=== PATIENT | female | born 1980 | race Caucasian/White ===

== ENCOUNTER 2020-07-30 12:44 | Emergency (ER) | payer BC, SELFPAY ==
[2020-07-30 12:50] VITALS: BP 140/92; PULSE 68; RESP 18; TEMP 36.5; O2SAT 100
--- NOTE | 2020-07-30 13:03 | PC.NURSE ---
Spoke with Dr Dumont about patient, orders given
--- NOTE | 2020-07-30 13:18 | PC.NURSE ---
Patient c/o being dizzy during blood draw. Cold rag given. Patient's hands visibly shaking. Reports that this has been happening intermittently today.
--- NOTE | 2020-07-30 13:31 | ED.ANXIETY ---
HPI - Anxiety General Chief Complaint: Allergic Reaction Stated Complaint: Possible allgeric reaction to meds Time Seen by Provider: 07/30/20 13:19 History of Present Illness HPI narrative: 39 yo female with h/o recent thyroidectomy presents t the ED for extremity numbness. SHe awoke from sleep this morning with bilateral hand numbness. She does have some sensation, but feels like they are asleep. She also says that she just does not feel right. She does nt know if she is having any muscle spasm. Related Data Home Medications Medication Instructions Recorded Confirmed calcitriol 07/30/20 cefdinir mg 07/30/20 hydrocodone-acetaminophen 07/30/20 levothyroxine [Euthyrox] 07/30/20 Allergies Allergy/AdvReac Type Severity Reaction Status Date / Time No Known Allergies Allergy Mild Verified 07/30/20 12:52 Review of Systems Review of Systems: All systems reviewed & are unremarkable except as noted in HPI and below Constitutional: Constitutional: Denies fever(s) and Reports weakness Cardiovascular: Cardiovascular: Denies chest pain Gastrointestinal: Gastrointestinal: Denies abdominal pain Neurologic: Reports numbness and Reports weakness PMFSH Family History Family History (Updated 05/22/18 @ 11:16 by DOCTOR UNKNOWN) Other Hypertension Social History Social History Smoking status: Light tobacco smoker Alcohol intake: current Exam Const: General: healthy appearing and alert Nutritional Appearance: well nourished Orientation/consciousness: patient oriented x3 Other: mild distress HENMT: Head: normal to inspection Neck: Other: Small surgical wound to anterior neck Resp: Effort & Inspection: normal respiratory effort Auscultation: clear to auscultation bilaterally Cardio: Rate: regular rate Rhythm: regular rhythm Skin: General skin exam: normal color Neuro: General: patient oriented x3 and moves all extremities Speech: normal speech Other: carpal spasms Extrem: General: no edema Psych: Affect: Anxious affect present Course Vital Signs Vital signs: Vital Signs Temperature 36.5 C 07/30/20 12:50 Pulse Rate 68 07/30/20 12:50 Respiratory Rate 18 07/30/20 12:50 Blood Pressure 140/92 H 07/30/20 12:50 Pulse Oximetry 100 07/30/20 12:50 Temperature 36.5 C 07/30/20 12:50 Pulse Rate 64 07/30/20 16:03 Respiratory Rate 18 07/30/20 16:03 Blood Pressure 106/83 07/30/20 16:03 Pulse Oximetry 100 07/30/20 16:03 MDM - Anxiety MDM Narrative Medical decision making narrative: Likely hypocalcemia related to her surgery. Case discussed with Dr. Hawkins. He suggests doubling her calcium supplement. Differential Diagnosis Differential diagnosis: Likely hyperventilation, acute anxiety and other (hypocalcemia) Medical Records Attestation: I reviewed the patient's medical records. Lab Data Attestation: I reviewed the patient's lab results. Result diagrams: 07/30/20 13:14 07/30/20 13:14 Labs: Lab Results 07/30/20 07/30/20 Range/Units 13:14 13:14 WBC 9.2 (4.5-10.0) K/mm3 RBC 4.82 (4.2-5.4) M/mm3 Hgb 14.3 (12.0-15.0) g/dL Hct 42.6 (37.0-47.0) % MCV 88.4 (80-100) fl MCH 29.7 (26-34) pg MCHC 33.6 (32-36) g/dl RDW 13.3 (11.5-14.5) % Plt Count 354 (150-375) k/mm3 MPV 9.6 (7.4-10.4) fl Immature Gran % (Auto) 0.3 (0-0.5) % Neut % (Auto) 47.8 (45.5-73.1) % Lymph % (Auto) 38.9 (18.3-44.2) % [place] % (Auto) 8.7 H (2.6-8.5) % Eos % (Auto) 4.0 (0-4.4) % Baso % (Auto) 0.3 (0.2-1.2) % Lymph # (Auto) 3.57 H (0.9-3.2) K/mm3 [place] # (Auto) 0.8 H (0.1-0.6) K/mm3 Eos # (Auto) 0.4 H (0-0.3) K/mm3 Baso # (Auto) 0.0 (0.0-0.1) K/mm3 Abs Immat Gran (auto) 0.03 (0.00-0.031) K/mm3 Absolute Neuts (auto) 4.4 (1.3-6.7) K/mm3 Absolute Nucleated RBC 0.0 (0.0-0.012) K/mm3 Nucleated RBC % 0.2 (0.0-0.2) % Sodium 140 (137-145) mmol/L Potassium 3.6
[2020-07-30 13:35] LABS: Basophils Percent Auto 0.3 % (0.2-1.2); Eosinophils Absolute Auto 0.4 K/mm3 (0-0.3); Hematocrit 42.6 % (37.0-47.0); Hemoglobin 14.3 g/dL (12.0-15.0); Immature Granulocyte Absolute 0.03 K/mm3 (0.00-0.031); Immature Granulocyte Percent A 0.3 % (0-0.5); Lymphocytes Absolute Auto 3.57 K/mm3 (0.9-3.2); Lymphocytes Percent Auto 38.9 % (18.3-44.2); Mean Corpuscular HGB Conc 33.6 g/dl (32-36); Mean Corpuscular Hemoglobin 29.7 pg (26-34); Mean Corpuscular Volume 88.4 fl (80-100); Mean Platelet Volume 9.6 fl (7.4-10.4); Monocytes Absolute Auto 0.8 K/mm3 (0.1-0.6); Monocytes Percent Auto 8.7 % (2.6-8.5); Neutrophils Absolute Auto 4.4 K/mm3 (1.3-6.7); Neutrophils Percent Auto 47.8 % (45.5-73.1); Nucleated Red Blood Cells Perc 0.2 % (0.0-0.2); Platelet Count Result 354 k/mm3 (150-375); Red Blood Count 4.82 M/mm3 (4.2-5.4); Red Cell Distribution Width 13.3 % (11.5-14.5); White Blood Count 9.2 K/mm3 (4.5-10.0)
[2020-07-30 13:41] LABS: Alanine Aminotransferase 25 U/L (4-35); Alkaline Phosphatase 54 U/L (38-126); Anion Gap 10 mmol/L (8-16); Aspartate Amino Transferase 28 U/L (14-36); Bilirubin,Total 0.2 mg/dL (0.2-1.3); Blood Urea Nitrogen 13 mg/dL (7-17); Carbon Dioxide 25 mmol/L (22-30); Chloride 105 mmol/L (98-107); Estimated CRCL calculation 105 ml/min; Estimated Glomerular Filt Rate > 60; Glucose 83 mg/dL (65-105); Potassium 3.6 mmol/L (3.4-5.0); Sodium 140 mmol/L (137-145)
[2020-07-30] MEDS: CALCIUM GLUCONATE 1,000 MG/10 ML VIAL 1000 MG IV PUSH (13:54)
[2020-07-30] MEDS: SODIUM CHLORIDE 0.9% IV 1,000 ML 999 ML IV CONT (13:54)
[2020-07-30] MEDS: LORazepam INJ (*CRX) 2 MG/ML VIAL 1 MG IV PUSH (13:54)
[2020-07-30 16:03] VITALS: BP 106/83; PULSE 64; RESP 18; O2SAT 100
== END 2020-07-30 16:04 | disposition home or self-care (01) ==
PROVIDERS: Emergency Medicine; Emergency Provider Emergency Medicine; PCP Physician Assistant
DX: E83.51 Hypocalcemia (principal); E89.0 Postprocedural hypothyroidism; F17.200 Nicotine dependence, unspecified, uncomplicated; Z98.890 Other specified postprocedural states
CPT/HCPCS: 36415; 80053; 85025; 96361; 96374; 96375; 99284; J0610; J2060; J7030

== ENCOUNTER 2022-08-28 00:20 | Day surgery (SDC) | payer BC, SELFPAY ==
[2022-08-14 14:37] VITALS: BMI 36.7
--- NOTE | 2022-08-14 14:38 | PC.NURSE ---
Report to the Outpatient Waiting Room, entrance under the green pavilion located off [facility], at time _0630_ on date _07/29/22_. Planned Procedure Time: _0830_. Time changes happen often and if your time is changed the preop area will call you the afternoon before. - You and your visitor will be asked to self-screen and do not enter if you have any COVID symptoms. - Only one visitor is requested with a max of two and NO children visitors are allowed at this time. - The patient visitor may be requested to leave or wait in car when not with patient due to distancing restrictions. - A mask is optional within the hospital. Patients may have clear liquids (water, carbonated beverages, clear teas, apple juice) until 3 hours prior to surgery with a maximum of 20 ounces. - No food from midnight until time of surgery - Infants may have breast milk until 4 hours before surgery, formula 6 hours prior to surgery. - Children will be allowed to drink immediately following surgery. If applicable, please bring a bottle or sippy cup to assist with drinking. Juice, water, soda, and popsicles are readily available. For infants on formula, please bring formula the day of surgery. Pacifiers are allowed. Take the following medications with a SIP of water the morning of surgery: __Levothyroxine___ Medications to discontinue per physician _supplement 3 days prior Date to take last dose Please no make-up, nail yemeni, hairspray, perfume, deodorant, or body powder the day of surgery. No jewelry (including any body piercings) or valuables the day of surgery, leave them at home. Please take a shower or bath the night before, or the morning of, surgery with an antibacterial soap. Wear comfortable, loose fitting clothing. Children are encouraged to wear pajamas. - Jewelry must be removed prior to entering the operating room. Rings and piercings that are not removed may be cut off. - The hospital will not accept responsibility for valuables. - Please leave all valuables, including medications, at home the day of surgery. If you are going home after surgery, a licensed services delivery driver must drive you home. - NO public transportation without another adult if you receive anesthesia. - We recommend that an adult stay with you for 24 hours following discharge. - We also recommend that you do not drive, make important decision, drink alcoholic beverages, or take any drugs that were not prescribed by your health care provider for at least 24 hours after your discharge time. For Pediatric surgeries, we recommend two adults accompany the child home. Follow any additional instructions given to you from your surgeon. If you or anyone in your household have experienced Covid symptoms in the past week, please notify your surgeon or the nurse liaison at the phone number below for possible testing. Telephone instructions given to _Patient__and asked if any additional questions and then verbalized understanding. Patient advised to call surgeon office or pre surgery nurse liaison [phone] if any additional questions.
[2022-08-28] VITALS (9 sets, daily range): BP systolic 102–124; BP diastolic 55–73; PULSE 62–86; RESP 12–18; TEMP 36.4–36.6; O2SAT 96–100
--- NOTE | 2022-08-28 07:27 | PM.IMHP ---
H&P: HPI History of Present Illness Date/Time: 08/28/22 07:27 Chief Complaint: 41-year-old female with severe menorrhagia and unwanted fertility. She also has pelvic pain we have agreed to perform laparoscopic bilateral salpingectomy and endometrial ablation. She understands the risk. She understands that injuries may occur that resulted in hospitalization, more surgery, and severe illness. She understands there is risk of hemorrhage and infection. Review of Systems Review of Systems: All systems reviewed & are unremarkable except as noted in HPI and below Constitutional: Constitutional: Denies chills, Denies fatigue, Denies fever(s) and Denies weakness Eyes: Eyes: Denies blurry vision, Denies change in vision, Denies loss of peripheral vision, Denies loss of vision, Denies other visual disturbances and Denies eye pain ENT: Denies vertigo, Denies dizziness, Denies hearing loss, Denies mouth pain, Denies nasal obstruction, Denies neck mass and Denies neck pain Cardiovascular: Cardiovascular: Denies chest pain, Denies diaphoresis, Denies syncope, Denies leg edema and Denies dyspnea Respiratory: Respiratory: Denies chest congestion, Denies cough, Denies hemoptysis, Denies dyspnea and Denies wheezing Gastrointestinal: Gastrointestinal: Denies abdominal pain, Denies constipation, Denies diarrhea, Denies nausea and Denies vomiting Genitourinary: Genitourinary: Denies hematuria, Denies change in libido, Denies nocturia, Denies genital lesions, Denies flank pain and Denies urinary urgency Musculoskeletal: Musculoskeletal: Denies abnormal gait, Denies back pain, Denies myalgias, Denies arthralgias, Denies joint swelling, Denies muscle weakness and Denies neck pain Integumentary/Breasts: Skin/Breast: Denies swelling, Denies breast pain, Denies breast mass, Denies dry skin, Denies nipple discharge, Denies unusual bruising and Denies jaundice Neurologic: Denies Neuro-related abnormal movements, Denies Abnormal speech present, Denies abnormal gait, Denies behavioral changes, Denies confusion, Denies vertigo, Denies dizziness, Denies syncope, Denies loss of vision, Denies memory loss, Denies convulsions and Denies weakness Psychiatric: Psychiatric: Denies abnormal sleep pattern, Denies behavioral changes, Denies change in libido, Denies confusion, Denies depression, Denies anhedonia and Denies memory loss Endocrine: Endocrine: Reports no additional endocrine complaints, Denies change in libido and Denies fatigue Hematologic/Lymphatic: Hematologic/Lymphatic: Reports no additional hematologic/lymphatic complaints Allergic/Immunologic: Allergic/Immunologic: Reports no additional allergic/immunologic complaints and Denies wheezing [facility] Family History Family History (Updated 05/22/18 @ 11:16 by DOCTOR UNKNOWN) Other Hypertension Social History Social History Years smoked: 18 Smoking status: Light tobacco smoker Tobacco type: cigarettes Alcohol intake: current Drinks per week: 4 Substance use: never Substance use type: does not use Living arrangements: with family Spiritual care concerns: No Meds Home Medications and Allergies Home Medications Medication Instructions Recorded Confirmed Type ergocalciferol (vitamin D2) 1,250 50,000 unit PO WEEKLY 08/14/22 08/28/22 History mcg (50,000 unit) capsule escitalopram oxalate 10 mg tablet 10 mg PO DAILY 08/14/22 08/28/22 History levothyroxine 200 mcg tablet 200 mcg PO DAILY 08/14/22 08/28/22 History (Unithroid) Allergies Allergy/AdvReac Type Severity Reaction Status Date / Time No Known Allergies Allergy Mild Verified 08/28/22 06:25 Vital Signs Vital Signs - 24 hr 08/28/22 06:38 Temperature 97.5 F L Pulse Rate 79 Respiratory Rate 18 Blood Pressure 114/72 Pulse Oximetry 99 Oxygen Delivery Room Air Exam Const: General: cooperative, healthy appearing, comfortable and no acute distress; No confusion Orientation/consciousness: chiquita
--- NOTE | 2022-08-28 07:31 | WPDHPUPDATE1 ---
History and Physical Update Update Date/Time: 08/28/22 07:31 History and Physical has been reviewed, including an updated exam of the patient. There are NO changes in the patient's condition. Risks, benefits, and alternatives have been discussed and questions answered. Patient agrees to proceed with procedure.
--- NOTE | 2022-08-28 07:46 | P.PNAN_ITS ---
Anes - Initial Pre Proc Eval Procedure: Operation Date: 08/28/22 08:30 Proposed Procedures p Laparoscopic Bilateral Salpingectomy, Hysteroscopy with Hanna Endometrial Ablation - Andrez Jones MD Date/Time: 08/28/22 07:46 Surgeon: Andrez Jones MD Pre Op Diagnosis: desires sterilization, Menorrhagia Patient Data Age: 41 Gender: F Height: 1.7 m Weight: 109 kg Last Vital Signs Temp 36.4 C L 08/28/22 06:38 Pulse 79 08/28/22 06:38 Resp 18 08/28/22 06:38 BP 114/72 08/28/22 06:38 Pulse Ox 99 08/28/22 06:38 O2 Del Method Room Air 08/28/22 06:38 Allergies Allergy/AdvReac Type Severity Reaction Status Date / Time No Known Allergies Allergy Mild Verified 08/28/22 06:25 Home Medications Medication Instructions Recorded Confirmed Type ergocalciferol (vitamin D2) 1,250 50,000 unit PO WEEKLY 08/14/22 08/28/22 History mcg (50,000 unit) capsule escitalopram oxalate 10 mg tablet 10 mg PO DAILY 08/14/22 08/28/22 History levothyroxine 200 mcg tablet 200 mcg PO DAILY 08/14/22 08/28/22 History (Unithroid) Patient hx anesthesia problems: none Family hx anesthesia problems: none Results Review: All pre-operative results and documents have been reviewed as part of the pre- operative evaluation. [facility] Past Medical History Medical History Depression Hypothyroid Family History Family History Other Hypertension Social History Social History Years smoked: 18 Smoking status: Light tobacco smoker Tobacco type: cigarettes Alcohol intake: current Drinks per week: 4 Substance use: never Substance use type: does not use Living arrangements: with family Spiritual care concerns: No Anes - Eval Final PreProcedure Day of Procedure 08/28/22 07:46 Patient weight: obese Heart: regular rate and rhythm Lungs: clear to auscultation Airway: Mallampati scale class II Neurological: alert and oriented Last oral intake: >/= 8 hours ASA classification: II Emergent: no Anesthetic plan: proceed Anesthesia type and monitoring: general ETT and standard monitoring Results Review: All pre-operative results and documents have been reviewed as part of the pre- operative evaluation. Informed Consent: The patient's anesthetic plan and its attendant risks and benefits were discussed with the patient/family/POA. Questions were solicited and answers provided to the satisfaction of the patient/family/POA.
[2022-08-28] MEDS: LACTATED RINGERS 1,000 ML 30 ML IV CONT ×2 (08:11→09:44)
[2022-08-28] MEDS: ACETAMINOPHEN 500 MG TABLET 1000 MG PO (08:11)
[2022-08-28] MEDS: KETOROLAC 15 MG/ML VIAL (*BKC) IV PUSH (08:11)
[2022-08-28] MEDS: SCOPOLAMINE 1.5 MG PATCH TRANSDERM (08:11)
--- NOTE | 2022-08-28 09:32 | SUR.OPER ---
IUD INTACT FULLY PER SURGEON NOT TO SEND TO PATHOLOGY
--- NOTE | 2022-08-28 09:58 | P.OP_ITS ---
Procedure Note - Detailed Date of Procedure 08/28/22 Pre-op Diagnosis desires sterilization, Menorrhagia Post-op Diagnosis Same Procedure Performed Laparoscopic bilateral salpingectomy with endometrial ablation and hysteroscopy. IUD removal Surgeon Andrez Jones MD Anesthesia General Indications Menorrhagia, female sterilization Findings Normal-appearing over vulva vagina and cervix. Thin endometrial surface and normalendometrial cavity with IUD placed. , Endometriosis in the posterior cul-de-sac diffuse, throughout the posterior cul-de-sac, patient would need robot for resection of endometriosis. Description of Procedure Patient was taken the operating room. She has prepped draped in the dorsal lithotomy position after induction of general anesthesia. A 5 mm abdominal incision was made in left upper quadrant of the abdomen with scalpel. A 5 mm trocars inserted the intra-abdominal cavity under direct visualization of the scope. Pneumoperitoneum was achieved. A 5 mm periumbilical incision was made using a scalpel on the abdominal scan. A 5 mm trocar was inserted the intra- abdominal cavity under visualization of the scope. A 5 mm incision made left lower quadrant of the abdomen. A 5 mm trocar was inserted the intra-abdominal cavity and direct visualization of the scope. The bilateral fallopian tubes were removed. The paratubal tissue in the area of the uterus was grasped with the LigaSure cautery and transected after being cauterized. The paratubal tissue from the ovary to the uterine cornu was cauterized and transected with LigaSure cautery. This was all done in a bilateral fashion. The tube was transected at the area of the uterine cornua and the tubes was removed through the 5 mm trocar site. The pneumoperitoneum was reduced. The trocars were removed. The skin was closed with subcuticular 4 Monocryl and covered with Dermabond. Our attention was then turned to the endometrial ablation portion of the procedure. A speculum was placed in the vagina. The cervix was grasped with a tenaculum. IUD was removed with a hemostat. The cervix was dilated to approximately 8 mm with Miller dilators. The hysteroscope was inserted. And the below findings were noted. Measurements of the cervix were taken using the uterine sound and the hysteroscope. The intrauterine cavity measurements were entered into the handpiece. The device was inserted into the intrauterine cavity and the array was expanded. The balloon cuff was inflated. When an adequate seal was formed the safety and energy cycles were initiated and completed. The array was collapsed, the balloon was deflated. The insert was withdrawn. The hysteroscope was reinserted and a well desiccated intrauterine cavity was observed. The patient was taken recovery room stable condition. Sponge lap and needle counts were correct x2. She tolerated the procedure well. Estimated Blood Loss 20 Pathology Yes Complications No immediate complications Condition Stable Disposition PACU
[2022-08-28] MEDS: fentaNYL CITRATE INJ (*CRX) 100 MCG/2 ML VIAL 25 MCG IV PUSH ×4 (10:54→11:11)
[2022-08-28] MEDS: oxyCODONE HCL (*CRX) 5 MG TAB IR PO (11:11)
[2022-08-28] MEDS: ONDANSETRON INJ 4 MG/2 ML VIAL IV PUSH (11:15)
== END 2022-08-28 12:06 | disposition home or self-care (01) ==
PROVIDERS: PCP Physician Assistant; Visit Provider Obstetrics & Gynecology
PROC: 0UDB8ZZ Extraction of Endometrium, Via Natural or Artificial Opening Endoscopic (ICD-10-PCS; CPT 58558; principal; 2022-08-28 08:30)
DX: Z30.2 Encounter for sterilization (principal); N92.0 Excessive and frequent menstruation with regular cycle; E03.9 Hypothyroidism, unspecified; F32.A Depression, unspecified; F17.210 Nicotine dependence, cigarettes, uncomplicated; E66.9 Obesity, unspecified; Z68.37 Body mass index [BMI] 37.0-37.9, adult
CPT/HCPCS: 58563; 58661; 88302; A9270; J0330; J1100; J1885; J2250; J2405; J2704; J2710; J3010; J7030; J7120

== ENCOUNTER 2023-03-12 16:02 | Outpatient (CLI) | payer BC, SELFPAY | END 2023-03-12 16:03 | disposition home or self-care (01) | LOC: ANHLAB 16:04 | PROVIDERS: PCP Physician Assistant; Visit Provider Obstetrics & Gynecology | DX: Z01.818 Encounter for other preprocedural examination (principal); N92.0 Excessive and frequent menstruation with regular cycle | CPT/HCPCS: 36415; 86850; 86900; 86901 ==

== ENCOUNTER 2023-04-02 08:58 | Outpatient (CLI) | payer BC, SELFPAY ==
[2023-04-02 09:35] LABS: Anion Gap 8 mmol/L (8-16); Blood Urea Nitrogen 11 mg/dL (7-17); Calcium 7.7 mg/dL (8.4-10.2); Carbon Dioxide 26 mmol/L (22-30); Chloride 102 mmol/L (98-107); Estimated Glomerular Filt Rate > 60; Glucose 119 mg/dL (65-110); Potassium 4.1 mmol/L (3.4-5.0); Sodium 136 mmol/L (137-145)
== END 2023-04-02 08:59 | disposition home or self-care (01) ==
LOC: ANHSURGERY 09:04
PROVIDERS: Anesthesiology; PCP Physician Assistant; Visit Provider Obstetrics & Gynecology
DX: Z01.812 Encounter for preprocedural laboratory examination (principal); N92.0 Excessive and frequent menstruation with regular cycle; R73.03 Prediabetes
CPT/HCPCS: 36415; 80048; 86850; 86900; 86901

== ENCOUNTER 2023-04-09 17:55 | Observation (INO) | payer BC, SELFPAY ==
[2023-03-11 10:04] VITALS: BMI 37.9
--- NOTE | 2023-03-11 10:12 | PC.NURSE ---
Report to the Outpatient Waiting Room, entrance under the green pavilion located off [facility], at time 6:00 on date 03/19/23. Planned Procedure Time: 7:30. Time changes happen often and if your time is changed the preop area will call you the afternoon before. - You and your visitor will be asked to self-screen and do not enter if you have any COVID symptoms. - A mask is optional within the hospital at this time. Patients may have clear liquids (water, carbonated beverages, clear teas, apple juice) until 3 hours prior to surgery (4:30) with a maximum of 20 ounces. - No food from midnight until time of surgery Take the following medications with a SIP of water the morning of surgery: LEVOTHYROXINE DO NOT STOP ANY OF YOUR OTHER PRESCRIPTION MEDICATIONS PRIOR TO SURGERY ?EXCEPT THE FOLLOWING Medications to discontinue per physician: VITAMINS/SUPPLEMENTS Date to take last dose: 03/15/23 Please no make-up, nail south african, hairspray, perfume, deodorant, or body powder the day of surgery. No jewelry (including any body piercings) or valuables the day of surgery, leave them at home. Please take a shower or bath the night before, or the morning of, surgery with an antibacterial soap. Wear comfortable, loose fitting clothing. - Jewelry must be removed prior to entering the operating room. Rings and piercings that are not removed may be cut off. - The hospital will not accept responsibility for valuables. - Please leave all valuables, including medications, at home the day of surgery. If you are going home after surgery, a licensed emergency medical technician/driver must drive you home. - NO public transportation without another adult if you receive anesthesia. - We recommend that an adult stay with you for 24 hours following discharge. - We also recommend that you do not drive, make important decision, drink alcoholic beverages, or take any drugs that were not prescribed by your health care provider for at least 24 hours after your discharge time. Follow any additional instructions given to you from your surgeon. If you or anyone in your household have experienced Covid symptoms in the past week, please notify your surgeon or the nurse liaison at the phone number below for possible testing. Telephone instructions given to PT - KRIS GARCIA and asked if any additional questions and then verbalized understanding. Patient advised to call surgeon office or pre surgery nurse liaison [phone] if any additional questions.
--- NOTE | 2023-03-17 13:41 | P.PNAN_ITS ---
Anes - Initial Pre Proc Eval Procedure: Operation Date: 03/19/23 07:30 Proposed Procedures p Robotic Assisted Hysterectomy with Bilateral Salpingectomy - Andrez Jones MD Date/Time: 03/17/23 13:41 Surgeon: Andrez Jones MD Pre Op Diagnosis: menorrhagia Patient Data Age: 42 Gender: F Height: 1.7 m Weight: 109.8 kg Allergies Allergy/AdvReac Type Severity Reaction Status Date / Time No Known Allergies Allergy Mild Verified 03/11/23 10:02 Home Medications Medication Instructions Recorded Confirmed Type ergocalciferol (vitamin D2) 1,250 50,000 unit PO WEEKLY 08/14/22 03/11/23 History mcg (50,000 unit) capsule escitalopram oxalate 10 mg tablet 10 mg PO DAILY 08/14/22 03/11/23 History levothyroxine 200 mcg tablet 200 mcg PO DAILY 08/14/22 03/11/23 History (Unithroid) calcium carbonate 600 mg calcium 1,200 mg PO DAILY 03/11/23 03/11/23 History (1,500 mg) tablet (Calcium) Results Review: All pre-operative results and documents have been reviewed as part of the pre- operative evaluation. [facility] Past Medical History Medical History (Updated 03/17/23 @ 13:43 by Jose Cain MD) Depression Hypothyroid Obesity Smoker Thyroid cancer Family History Family History Other Hypertension Social History Social History Years smoked: 19 Smoking status: Current every day smoker Tobacco type: cigarettes Alcohol intake: current Drinks per week: 5 Substance use: current Substance use type: marijuana Other substance usage details: RARE Living arrangements: with family Additional living arrangements comments: SISTER Gender identity (if verbalized by the patient): Female Sexual Orientation (if Verbalized by the Patient): Straight or Heterosexual Spiritual care concerns: No Anes - Eval Final PreProcedure Day of Procedure 03/17/23 13:41 Patient weight: obese Heart: regular rate and rhythm Lungs: clear to auscultation Airway: Mallampati scale class II Neurological: alert and oriented Last oral intake: >/= 8 hours ASA classification: III Emergent: no Anesthetic plan: proceed Anesthesia type and monitoring: general ETT and standard monitoring Results Review: All pre-operative results and documents have been reviewed as part of the pre- operative evaluation. Informed Consent: The patient's anesthetic plan and its attendant risks and benefits were discussed with the patient/family/POA. Questions were solicited and answers provided to the satisfaction of the patient/family/POA.
--- NOTE | 2023-03-28 14:41 | PC.NURSE ---
Medications and medical history updated. Pt states no other changes in history since initial interview. New pre-op instructions reviewed with pt. Pt denies further questions at this time.
--- NOTE | 2023-03-28 14:42 | PC.NURSE ---
Report to the Outpatient Waiting Room, entrance under the green pavilion located off [facility], at time 6:30 on date 04/08/23. Planned Procedure Time: 8:30. Time changes happen often and if your time is changed the preop area will call you the afternoon before. - You and your visitor will be asked to self-screen and do not enter if you have any COVID symptoms. - A mask is optional within the hospital at this time. Patients may have clear liquids (water, carbonated beverages, clear teas, apple juice) until 3 hours prior to surgery with a maximum of 20 ounces. - No food from midnight until time of surgery Take the following medications with a SIP of water the morning of surgery: LEVOTHYROXINE DO NOT STOP ANY OF YOUR OTHER PRESCRIPTION MEDICATIONS PRIOR TO SURGERY ?EXCEPT THE FOLLOWING Medications to discontinue per physician: VITAMINS/SUPPLEMENTS Date to take last dose: 04/04/23 Please no make-up, nail pashto, hairspray, perfume, deodorant, or body powder the day of surgery. No jewelry (including any body piercings) or valuables the day of surgery, leave them at home. Please take a shower or bath the night before, or the morning of, surgery with an antibacterial soap. Wear comfortable, loose fitting clothing. - Jewelry must be removed prior to entering the operating room. Rings and piercings that are not removed may be cut off. - The hospital will not accept responsibility for valuables. - Please leave all valuables, including medications, at home the day of surgery. If you are going home after surgery, a licensed distribution driver must drive you home. - NO public transportation without another adult if you receive anesthesia. - We recommend that an adult stay with you for 24 hours following discharge. - We also recommend that you do not drive, make important decision, drink alcoholic beverages, or take any drugs that were not prescribed by your health care provider for at least 24 hours after your discharge time. Follow any additional instructions given to you from your surgeon. If you or anyone in your household have experienced Covid symptoms in the past week, please notify your surgeon or the nurse liaison at the phone number below for possible testing. Telephone instructions given to PT - KRIS GARCIA and asked if any additional questions and then verbalized understanding. Patient advised to call surgeon office or pre surgery nurse liaison [phone] if any additional questions.
[2023-04-08] VITALS (10 sets, daily range): BP systolic 117–133; BP diastolic 70–90; PULSE 61–79; RESP 10–24; TEMP 36.4–36.8; O2SAT 94–100
--- NOTE | 2023-04-08 05:47 | ECG_ITS ---
Measurements Intervals [place] Rate: 67 P: 60 LA: 148 QRS: 25 QRSD: 76 T: 38 QT: 430 QTc: 456 Interpretive Statements SINUS RHYTHM LOW QRS VOLTAGE IN PRECORDIAL LEADS BASELINE ARTIFACT- AVF BORDERLINE ECG NO PREVIOUS ECG AVAILABLE FOR COMPARISON Electronically Signed On 04-08-2023 7:50:15 CDT by Charlie Gonzalez D.O.
[2023-04-08] MEDS: ACETAMINOPHEN 500 MG TABLET 1000 MG PO (06:05)
[2023-04-08] MEDS: LACTATED RINGERS 1,000 ML 30 ML IV CONT ×2 (06:39→09:20)
[2023-04-08] MEDS: KETOROLAC 15 MG/ML VIAL (*BKC) IV PUSH (06:40)
--- NOTE | 2023-04-08 06:46 | P.PNAN_ITS ---
Anes - Initial Pre Proc Eval Procedure: Operation Date: 04/08/23 07:30 Proposed Procedures p Total Laparoscopic Hysterectomy with Bilateral Salpingectomy - Andrez Jones MD Date/Time: 04/08/23 06:46 Surgeon: Andrez Jones MD Pre Op Diagnosis: menorrhagia Patient Data Age: 42 Gender: F Height: 1.7 m Weight: 108.4 kg Last Vital Signs Temp 36.4 C 04/08/23 06:14 Pulse 76 04/08/23 06:14 Resp 16 04/08/23 06:14 BP 127/80 04/08/23 06:14 Pulse Ox 97 04/08/23 06:14 O2 Del Method Room Air 04/08/23 06:14 Allergies Allergy/AdvReac Type Severity Reaction Status Date / Time No Known Allergies Allergy Mild Verified 04/08/23 06:02 Home Medications Medication Instructions Recorded Confirmed Type ergocalciferol (vitamin D2) 1,250 50,000 unit PO WEEKLY 08/14/22 04/08/23 History mcg (50,000 unit) capsule escitalopram oxalate 10 mg tablet 10 mg PO DAILY 08/14/22 04/08/23 History levothyroxine 200 mcg tablet 200 mcg PO DAILY 08/14/22 04/08/23 History (Unithroid) calcium carbonate 600 mg calcium 1,200 mg PO DAILY 03/11/23 04/08/23 History (1,500 mg) tablet (Calcium) metformin 500 mg tablet 500 mg PO DAILY 03/28/23 04/08/23 History oxycodone-acetaminophen 5 mg-325 2 tablet PO Q6H PRN pain #25 tabs 04/09/23 Rx mg tablet Patient hx anesthesia problems: none Family hx anesthesia problems: none Results Review: All pre-operative results and documents have been reviewed as part of the pre- operative evaluation. [facility] Past Medical History Medical History (Updated 03/17/23 @ 13:43 by Jose Cain MD) Depression Hypothyroid Obesity Smoker Thyroid cancer Family History Family History Other Hypertension Social History Social History Years smoked: 19 Smoking status: Current every day smoker Tobacco type: cigarettes Alcohol intake: current Drinks per week: 5 Substance use: current Substance use type: marijuana Other substance usage details: RARE Living arrangements: with family Additional living arrangements comments: SISTER Gender identity (if verbalized by the patient): Female Sexual Orientation (if Verbalized by the Patient): Straight or Heterosexual Spiritual care concerns: No Anes - Eval Final PreProcedure Day of Procedure 04/08/23 06:46 Patient weight: obese Heart: regular rate and rhythm Lungs: clear to auscultation Airway: Mallampati scale class II Neurological: alert and oriented Last oral intake: >/= 8 hours ASA classification: III Emergent: no Anesthetic plan: proceed Anesthesia type and monitoring: general ETT and standard monitoring Results Review: All pre-operative results and documents have been reviewed as part of the pre- operative evaluation. Informed Consent: The patient's anesthetic plan and its attendant risks and benefits were discussed with the patient/family/POA. Questions were solicited and answers provided to the satisfaction of the patient/family/POA.
--- NOTE | 2023-04-08 07:17 | WPDHPUPDATE1 ---
History and Physical Update Update Date/Time: 04/08/23 07:17 History and Physical has been reviewed, including an updated exam of the patient. There are NO changes in the patient's condition. Risks, benefits, and alternatives have been discussed and questions answered. Patient agrees to proceed with procedure.
[2023-04-08] MEDS: ceFAZolin 2 GM/D5W 50 ML 2 GM/50 ML BAG IVPB (07:29)
[2023-04-08] MEDS: ceFAZolin SODIUM 1 GM VIAL IRRIGATION (08:00)
[2023-04-08] MEDS: fentaNYL CITRATE INJ (*CRX) 100 MCG/2 ML VIAL 25 MCG IV PUSH ×8 (09:26→10:05)
--- NOTE | 2023-04-08 09:54 | SUR.PHASEI ---
RN received a verbal order from Dr. Jones to remove the [place]ll[place] since the patient was having so much pressure and urgency.
[2023-04-08] MEDS: DEXTROSE 5%/0.45% SOD CHL 1,000 ML 125 ML IV CONT (10:49)
[2023-04-08] MEDS: HYDROcodone/acetaminophen (*CRX) 5-325 MG TABLET 1 TAB PO (10:53)
--- NOTE | 2023-04-08 11:04 | OBPPTRN ---
1035 Patient transferred to post room #289 via bed. Support person present. Oriented to unit, room, information board, admission packet and security measures. Patient verbalizes understanding.
[2023-04-08] MEDS: KETOROLAC 30 MG/ML VIAL (*BKC) IV PUSH ×3 (11:48→23:54)
[2023-04-08] MEDS: ONDANSETRON INJ 4 MG/2 ML VIAL IV PUSH (12:21)
[2023-04-08] MEDS: HYDROcodone/acetaminophen (*CRX) 10-325 MG TABLET 1 TAB PO (14:02)
[2023-04-08] MEDS: fentaNYL CITRATE INJ (*CRX) 100 MCG/2 ML VIAL 50 MCG IV PUSH ×5 (15:16→23:55)
[2023-04-08] MEDS: SIMETHICONE 80 MG TAB.CHEW PO ×3 (19:23→23:55)
[2023-04-09] VITALS: PULSE 72; RESP 16; O2SAT 100
[2023-04-09 00:01] VITALS: BP 122/76; PULSE 72; RESP 16; TEMP 36.8; O2SAT 100
[2023-04-09] MEDS: fentaNYL CITRATE INJ (*CRX) 100 MCG/2 ML VIAL 50 MCG IV PUSH ×8 (02:30→19:39)
[2023-04-09] MEDS: SIMETHICONE 80 MG TAB.CHEW PO ×6 (02:31→19:39)
[2023-04-09 05:45] VITALS: PULSE 74; RESP 16; O2SAT 97
[2023-04-09] MEDS: LEVOTHYROXINE SODIUM 100 MCG TABLET 200 MCG PO (05:53)
[2023-04-09 05:57] VITALS: BP 118/73; PULSE 74; RESP 16; O2SAT 97
--- NOTE | 2023-04-09 07:25 | WPDANESPN ---
Anes - Prog Note Post-Op Date/Time: 04/09/23 07:25 Cardiovascular status: normal Respiratory status: normal Airway patency: baseline Mental status: baseline Post-Op hydration status: normal Vital Signs: Last Vital Signs Temp 98.2 F 04/09/23 00:01 Pulse 74 04/09/23 05:57 Resp 16 04/09/23 05:57 BP 118/73 04/09/23 05:57 Pulse Ox 97 04/09/23 05:57 O2 Del Method Room Air 04/09/23 05:45 O2 Flow Rate 2 04/08/23 10:20 Pain Score (VAS): 0/10 I/O: Intake & Output 04/08/23 04/08/23 04/09/23 15:59 23:59 07:59 Intake Total 600 1000 Output Total 900 Balance -300 1000 Post-procedural complaints: none Patient Feedback: Patient satisfied with anesthetic care.
[2023-04-09 07:55] VITALS: BP 117/83; PULSE 74; RESP 18; TEMP 37.2; O2SAT 100
[2023-04-09] MEDS: KETOROLAC 30 MG/ML VIAL (*BKC) IV PUSH ×2 (08:26→15:27)
[2023-04-09] MEDS: ESCITALOPRAM OXALATE 10 MG TABLET PO (08:32)
[2023-04-09] MEDS: metFORMIN HCL 500 MG TABLET PO (08:33)
--- NOTE | 2023-04-09 18:26 | PM.GYNPNOP ---
HERBARIUM CURATOR - A/P Postoperative Procedures: Procedures Operation Date: 04/08/23 07:30 Actual Procedure Side Surgeon p Total Laparoscopic Hysterectomy Andrez Jones MD Postoperative day: 1 Postoperative status: doing well Postoperative plan: see orders Time Spent With Patient Time: Total time spent is greater than 50% in coordination of care (as documented) at patient's floor/unit and/or counseling patient: Time with patient: less than 15 minutes HERBARIUM CURATOR- PN:Subj Post-Op Subjective Date/time seen: 04/09/23 18:26 Subjective: patient reports feeling better, patient has no complaints and pain is well controlled Exam Const: General: healthy appearing, comfortable and no acute distress Resp: Auscultation: clear to auscultation bilaterally, no rales, no rhonchi and no wheezes Cardio: Rate: regular rate Heart sounds: no click, no murmurs and no rubs GI: Inspection: non-distended Auscultation: normal bowel sounds Extrem: General: normal to inspection, no pedal edema and no calf tenderness HERBARIUM CURATOR - PN: Obj Data Vital Signs Vital Signs: Vital Signs - 24 hr 04/08/23 18:36 04/08/23 19:04 04/09/23 00:01 Temperature 98.2 F Pulse Rate 70 70 72 Respiratory Rate 18 18 16 Blood Pressure 132/70 122/76 Pulse Oximetry 100 100 100 Oxygen Delivery Room Air 04/09/23 00:00 04/09/23 05:57 04/09/23 05:45 Temperature Pulse Rate 72 74 74 Respiratory Rate 16 16 16 Blood Pressure 118/73 Pulse Oximetry 100 97 97 Oxygen Delivery Room Air Room Air 04/09/23 07:55 04/09/23 08:26 Temperature 98.9 F Pulse Rate 74 Respiratory Rate 18 Blood Pressure 117/83 Pulse Oximetry 100 Oxygen Delivery Room Air Intake/Output Intake/Output: Intake & Output 04/06/23 04/07/23 04/08/23 04/09/23 23:59 23:59 23:59 23:59 Intake Total 1650 Output Total 900 Balance 750 Meds/Results Medications: Active Medications Generic Name Dose Route Start Last Admin Trade Name Freq PRN Reason Stop Dose Admin Hydrocodone Bitart/Acetaminophen 1 tab 04/08/23 10:29 04/08/23 14:02 Hydrocodone/Acetaminophen (*Crx) 10-325 Mg Tablet PO 1 tab Q3H PRN Administration Pain Rated 6 or Greater Hydrocodone Bitart/Acetaminophen 1 tab 04/08/23 10:29 04/08/23 10:53 Hydrocodone/Acetaminophen (*Crx) 5-325 Mg Tablet PO 1 tab Q3H PRN Administration Pain Rated 5 or Less Escitalopram Oxalate 10 mg 04/09/23 09:00 04/09/23 08:32 Escitalopram Oxalate 10 Mg Tablet PO 10 mg DAILY ULISSES Administration Fentanyl Citrate 50 mcg 04/08/23 15:05 04/09/23 17:44 Fentanyl Citrate Inj (*Crx) 100 Mcg/2 Ml Vial IV PUSH 50 mcg Q2HR PRN Administration Pain Rated 7-10 Dextrose/Sodium Chloride 1,000 mls @ 125 mls/hr 04/08/23 10:29 04/08/23 18:49 Dextrose 5% Sodium Chloride 0.45% IV CONT Infused .Q8H ULISSES Infusion Ibuprofen 600 mg 04/08/23 10:29 Ibuprofen 600 Mg Tablet PO Q6H PRN Cramping Ketorolac Tromethamine 30 mg 04/08/23 10:29 04/09/23 15:27 Ketorolac 30 Mg/Ml Vial (*Bkc) IV PUSH 04/13/23 10:28 30 mg Q6H PRN Administration Pain Rated 4-6 Levothyroxine Sodium 200 mcg 04/09/23 06:30 04/09/23 05:53 Levothyroxine Sodium 100 Mcg Tablet PO 200 mcg DAILY@0630 ULISSES Administration Metformin HCl 500 mg 04/09/23 09:00 04/09/23 08:33 Metformin Hcl 500 Mg Tablet PO 500 mg DAILY ULISSES Administration Naloxone HCl 0.1 mg 04/08/23 10:29 Naloxone Hcl 0.4 Mg/Ml Vial IV PUSH Q2M PRN Respiratory rate less than 10 Ondansetron HCl 4 mg 04/08/23 10:29 04/08/23 12:21 Ondansetron Inj 4 Mg/2 Ml Vial IV PUSH 4 mg Q6H PRN Administration Nausea And Vomiting Simethicone 80 mg 04/08/23 19:16 04/09/23 15:31 Simethicone 80 Mg Tab.Chew PO 80 mg Q2H PRN Administration Gas Discomfort
--- NOTE | 2023-04-11 21:55 | W.PM.PROC2 ---
Procedure Note - Detailed Date of Procedure 04/11/23 Pre-op Diagnosis menorrhagia Post-op Diagnosis Same Procedure Performed Total laparoscopic hysterectomy, BSO Surgeon Andrez Jones MD Anesthesia General Findings unremarkable pelvic anatomy Description of Procedure This patient was taken to the operating room. She was prepped and draped in the dorsal lithotomy position after induction of general anesthesia. The uterine manipulator and Lang cup were placed. This was done with a speculum and tenaculum. The speculum was placed. The cervix was grasped with a tenaculum. The stay sutures were placed at 3 and 9:00 a.m.. The stay sutures of 0 Vicryl were brought through the appropriately sized Lang cup. The tip of the COSTA manipulator was placed in the intrauterine cavity. The cup was slid into place around the cervix and into the fornices. It was locked into place. The sutures were then wrapped around the handle and tied under tension. A 5 mm skin incision was made in the left upper quadrant the abdomen. A 5 mm trocar was inserted into the intrauterine cavity under direct visualization of the scope. Pneumoperitoneum was achieved. A left lower quadrant 11 mm incision was made with scalpel. An 11 mm trocar was inserted into the anterior abdominal cavity under direct visualization the scope. A 5 mm infraumbilical incision was made with a scalpel and a 5 mm trocar was inserted the intra-abdominal cavity under direct visualization of the scope. Bilateral ureteral lysis was performed. This was done from the pelvic brim down to the uterine artery. This was done with careful dissection using sharp and blunt dissection. The fallopian tubes were removed bilaterally. The mesosalpinx around the fallopian tubes were cauterized transected with LigaSure cautery. This was done in a bilateral fashion from the ovary to the uterine cornua. The fallopian tube was transected at the uterine cornu and amputated. The tube was taken out the left lower quadrant trocar site. In a stepwise fashion along the lateral aspects of the uterus the round ligament and broad ligaments were cauterized transected down to the level of the uterine arteries. A bladder flap was created in the bladder was moved distally to the end of the cervix and over the Lang cup. The bilateral uterine arteries were cauterized and transected. Colpotomy was then performed. In a circumferential fashion the vagina was transected using unipolar cautery. The incision was made down on the Lang cup. The uterus and cervix were taken out through the vagina. A pneumo occluder was placed in the vagina. The vaginal cuff was closed with a 0 V lock suture in a running fashion. The pelvis was irrigated with copious amounts antibiotic irrigation. The ureters were again examined and found to be intact and flowing freely under the uterine arteries into the bladder. The bladder was intact. It was examined directly. The vagina was irrigated with Betadine solution after removal of the Pneumo occluder. The patient was taken to recovery room. She was stable condition. Sponge lap and needle counts were correct x2. Estimated Blood Loss -100.0 Urine Output 300 Drains Yes Packing No Pathology Yes Complications No immediate complications Condition Stable Disposition Floor
--- NOTE | 2023-05-04 18:36 | PM.DS ---
DS: Admitting Diagnosis Discharge Date 04/09/23 Admitting Diagnosis menorrhagia DS: Discharge Diagnosis Discharge Diagnosis (1) Menorrhagia: Code(s): N92.0 - Excessive and frequent menstruation with regular cycle Status: Acute DS: Summary Hospital Course Hospital Course: 42-year-old female who was admitted for surgery. She underwent surgery, a total laparoscopic hysterectomy and bilateral salpingo-oophorectomy. She tolerated it well. She was observed for 24 hours. She was discharged home. Her stay was uneventful. She was ambulating, tolerating p.o., passing flatus immediately. Time Spent with Patient Time attestation: Total time spent providing and/or coordinating discharge services: DS: Data Data Completed and Pending Completed studies during hospitalization: Pending at discharge 04/08/23 08:58 Surgical [PTH] Routine Discharge Plan Discharge Consulting providers: Jose Cain; Charlie Gonzalez; Roddy Dove; Manny Ruiz Discharging Clinician: Andrez Jones Patient Disposition: Home, Self-Care Activity: pelvic rest Diet: regular Discharge Instructions: Some Complications to Watch for: ? Excessive incisional or vaginal drainage (more than one pad an hour). Additional Instructions: ? Expect some vaginal spotting for 2-4 days. ? Nothing vaginally (i.e. douching, intercourse, tampons) until follow up visit. Patient Instructions: Antibiotic Form, Laparoscopic Hysterectomy (DC) Stand Alone Forms: General Discharge Information Follow-up/Referrals: Andrez Jones MD [Physician] - Discharge Medications: New oxycodone-acetaminophen 5-325 mg tablet 2 tablet PO Q6H PRN (Reason: pain) Qty: 25 0RF Continued levothyroxine [Unithroid] 200 mcg tablet 200 mcg PO DAILY ergocalciferol (vitamin D2) 1,250 mcg (50,000 unit) capsule 50,000 unit PO WEEKLY Rx Instructions: take on Mondays escitalopram oxalate 10 mg tablet 10 mg PO DAILY Rx Instructions: 3PM calcium carbonate [Calcium 600] 600 mg calcium (1,500 mg) Tablet 1,200 mg PO DAILY metformin 500 mg Tablet 500 mg PO DAILY Date of admission: 04/09/23 17:55 Primary Care Provider: RosemarieMilla Admitting Provider: Andrez Jones Attending physician on admission: Andrez Jones Condition: Stable
== END 2023-04-09 19:50 | disposition home or self-care (01) ==
LOC: ANHSURGERY 18:05 → ANHOB2 18:06
PROVIDERS: Admitting Provider Obstetrics & Gynecology; PCP Physician Assistant; Visit Provider Obstetrics & Gynecology
PROC: 0UT9FZZ Resection of Uterus, Via Natural or Artificial Opening With Percutaneous Endoscopic Assistance (ICD-10-PCS; CPT 58570; principal; 2023-04-08 07:30)
DX: N92.0 Excessive and frequent menstruation with regular cycle (principal); N80.00 Endometriosis of the uterus, unspecified; E03.9 Hypothyroidism, unspecified; F32.A Depression, unspecified; Z79.84 Long term (current) use of oral hypoglycemic drugs; Z85.850 Personal history of malignant neoplasm of thyroid; E66.9 Obesity, unspecified; Z68.37 Body mass index [BMI] 37.0-37.9, adult; F17.210 Nicotine dependence, cigarettes, uncomplicated; F12.90 Cannabis use, unspecified, uncomplicated
CPT/HCPCS: 58570; 88307; 93005; 99199; A9270; G0378; G0379; J0690; J1100; J1885; J2250; J2405; J2704; J3010; J7030; J7120